=== PATIENT | male | born 1950 | race Caucasian/White ===

== ENCOUNTER → 2019-12-07 | Outpatient (CLI) | payer MEDICARE | END | disposition home or self-care (01) | LOC: CVU 15:55 | PROVIDERS: ATTEND Internal Medicine Cardiovascular Disease | DX: I08.3 Combined rheumatic disorders of mitral, aortic and tricuspid valves (principal); I11.9 Hypertensive heart disease without heart failure; I48.92 Unspecified atrial flutter | CPT/HCPCS: 93306; 93356 ==

== ENCOUNTER 2021-01-17 09:58 | Day surgery (SDC) | payer MEDICARE ==
[~2021-01-17] VITALS: Ht 185.4 cm; Wt 102.3 kg
[~2021-01-17 09:58] MED LIST: PROPOFOL 10 MG/ML, 20ML ONE
[2021-01-17] MEDS ORDERED: APIX5TAB PO (11:18)
[2021-01-17] MEDS ORDERED: CHOL10003 PO (11:18)
[2021-01-17] MEDS ORDERED: LISI-167 PO (11:18)
[2021-01-17 11:32] VITALS: BP 115/65
[2021-01-17 12:00] LABS: ANION GAP 7 mmol/L (5-15); CALCIUM 9.6 mg/dL (8.5-10.1); CHLORIDE 106 mmol/L (98-107)
[2021-01-17 12:01] LABS: CREATININE 1.07 mg/dL (0.7-1.3)
== END 2021-01-17 14:06 | disposition home or self-care (01) ==
LOC: CACL 09:58
PROVIDERS: ATTEND Internal Medicine Cardiovascular Disease
DX: I48.91 Unspecified atrial fibrillation (principal); I10 Essential (primary) hypertension; Z88.5 Allergy status to narcotic agent; Z72.0 Tobacco use; Z79.01 Long term (current) use of anticoagulants; Z79.899 Other long term (current) drug therapy
CPT/HCPCS: 36415; 80048; 92960; 93005; J2704